=== PATIENT | female | born 1955 | race Caucasian/White ===

== ENCOUNTER → 2020-04-05 | Outpatient (CLI) | payer BC ==
[~2020-04-05] MED LIST: AMLODIPINE BESY10 MG PO; ATORVASTATIN CA10 M1 PO; KEFLEX500 MG PO; MOTRIN800 MG PO; VICODIN ES 7501 TAB PO
== END | disposition home or self-care (01) ==
LOC: COVID19 10:25
PROVIDERS: ATTEND Family Medicine
DX: U07.1 COVID-19 (principal)

== ENCOUNTER 2020-04-18 14:51 | Emergency (ER) | payer BC ==
[~2020-04-18] VITALS: Ht 157.4 cm; Wt 81.6 kg
[~2020-04-18 14:51] MED LIST changes: -AMLODIPINE BESY10 MG PO; -ATORVASTATIN CA10 M1 PO
[2020-04-18] MEDS ORDERED: AMLODIPINE BESY10 MG PO (15:02)
[2020-04-18] MEDS ORDERED: ATORVASTATIN CA10 M1 PO (15:02)
== END 2020-04-18 19:10 | disposition home or self-care (01) ==
LOC: ED 14:51
DX: Z89.011 Acquired absence of right thumb (principal); Z88.0 Allergy status to penicillin; Z79.899 Other long term (current) drug therapy

== ENCOUNTER → 2020-04-19 | Day surgery (SDC) | payer BC ==
[~2020-04-19] MED LIST changes: +AMLODIPINE BESY10 MG PO; +ATORVASTATIN CA10 M1 PO
[2020-04-19 10:09] LABS: BUN 13 mg/dl (7-24); CHLORIDE 108 mmol/L (98-107); CREATININE 0.81 mg/dL (0.55-1.02); POTASSIUM 3.7 mmol/L (3.5-5.1); SODIUM 141 mmol/L (136-145)
[2020-04-19 15:17] VITALS: BP 118/72
[2020-04-19 15:32] VITALS: BP 116/74
[2020-04-19 15:47] VITALS: BP 115/65
== END ==
LOC: SDC 09:33
PROVIDERS: ATTEND Orthopaedic Surgery
DX: S68.521A Partial traumatic transphalangeal amputation of right thumb, initial encounter (principal); I10 Essential (primary) hypertension; E78.00 Pure hypercholesterolemia, unspecified; Z98.890 Other specified postprocedural states; Z88.0 Allergy status to penicillin; Z79.899 Other long term (current) drug therapy; X58.XXXA Exposure to other specified factors, initial encounter; Y93.89 Activity, other specified; Y92.89 Other specified places as the place of occurrence of the external cause; Y99.8 Other external cause status

== ENCOUNTER → 2020-09-05 | Outpatient (CLI) | payer BC | END | disposition home or self-care (01) | LOC: ORTHO 00:51 | PROVIDERS: ATTEND Orthopaedic Surgery | DX: M19.042 Primary osteoarthritis, left hand (principal) ==